=== PATIENT | female | born 1990 | race Hispanic/Latino ===

== ENCOUNTER 2017-02-07 20:24 | Inpatient (IN) | payer MEDICAID, OTHER, SELFPAY ==
[2017-02-07 20:56] VITALS: BMI 36.5
[2017-02-07] MEDS ORDERED: Promethazine HCl 25 MG/ML VIAL IM PRN (21:06)
[2017-02-07] MEDS ORDERED: Ondansetron HCl/PF 4 MG/2 ML Vial IVP PRN (21:06)
[2017-02-07] MEDS ORDERED: LR 500 ML/Oxytocin 10 units 500 ML IV SCH (21:15)
[2017-02-07] MEDS ORDERED: LR / Pitocin 40 units/1000 ml 40 UNITS/1,000 ML BAG IV SCH (21:15)
[2017-02-07] MEDS ORDERED: Lidocaine 1% (PF) 30 ML VIAL SC PRN (21:15)
[2017-02-07 21:29] LABS: Red Blood Cell (RBC) Count 4.46 mill/uL (4.20-5.40); White Blood Cell (WBC) Count 8.9 thou/uL (4.8-10.8)
[2017-02-07] MEDS: Misoprostol 100 MCG TAB VAG SCH (21:34)
[2017-02-07] MEDS: LR 500 ML/Oxytocin 10 units 500 ML IV SCH (21:34)
[2017-02-07] MEDS: Lactated Ringer's 1,000 ML IV SCH (21:34)
[2017-02-07 21:41] LABS: Hemoglobin A1c 5.4 % (4.0-6.0)
[2017-02-07] MEDS ORDERED: Penicillin G Potassium 5 MILL.UNITS in Sodium Chloride 0.9% 100 ML IVPB SCH (21:45)
[2017-02-08] MEDS: Misoprostol 100 MCG TAB VAG SCH ×5 (01:16→13:17)
[2017-02-08] MEDS: Penicillin G 2.5 MILL.units 2.5 MILL.UNITS in Premix Bag 1 BAG IVPB SCH ×4 (05:00→17:52)
[2017-02-08] MEDS: LR 500 ML/Oxytocin 10 units 500 ML IV SCH (05:09)
[2017-02-08] MEDS: Lactated Ringer's 1,000 ML IV SCH ×3 (05:09→15:32)
[2017-02-08] MEDS ORDERED: Fentanyl 4 mcg/Marc 0.1% Cadd 100 ML ONE (08:48)
[2017-02-08] MEDS ORDERED: Eucerin (Mineral Oil/Petrolatum,White) 30 gm Jar TOP PRN ×2 (09:43→21:32)
[2017-02-08] MEDS ORDERED: Acetaminophen 325 MG TAB PO PRN (09:43)
[2017-02-08] MEDS ORDERED: ePHEDrine/0.9% NaCl/PF SYRINGE 50 mg/10 ml SLOW IVP PRN (09:43)
[2017-02-08] MEDS ORDERED: Naloxone HCl 0.4 mg/ml Vial IVP PRN ×4 (09:43→21:32)
[2017-02-08] MEDS ORDERED: Lactated Ringer's 500 ML IV PRN (09:43)
[2017-02-08] MEDS ORDERED: Communication Order-Pharmacy FS SCH ×2 (09:45→21:45)
[2017-02-08] MEDS ORDERED: Fentanyl 4mcg/Marcaine 0.1% Cassette 100 ML EPIDURAL SCH (09:45)
[2017-02-08] MEDS ORDERED: CEFAZOLIN/Water 2 GM/20 ML SYRINGE ONE (21:01)
[2017-02-08] MEDS ORDERED: Bicitra 30 ML UDCUP ONE (21:01)
[2017-02-08] MEDS ORDERED: Bupivacaine 0.25% HCL 30 ML VIAL ONE (21:14)
[2017-02-08] MEDS ORDERED: Lidocaine 2% PF 10 ML AMP (For Epidural Use) ONE (21:14)
[2017-02-08] MEDS ORDERED: Oxytocin 10 UNITS/ML VIAL ONE (21:15)
[2017-02-08] MEDS ORDERED: Ondansetron HCl/PF 4 MG/2 ML Vial ONE (21:15)
[2017-02-08] MEDS ORDERED: CEFAZOLIN/Water 2 GM/20 ML SYRINGE SLOW IVP SCH (21:15)
[2017-02-08] MEDS ORDERED: PHENYLEPHRINE-NS 100 MCG/ML 10 ML SYRINGE ONE (21:15)
[2017-02-08] MEDS ORDERED: Bicitra 30 ML UDCUP PO SCH (21:15)
[2017-02-08] MEDS ORDERED: Dexamethasone 4 mg/ml Vial ONE (21:15)
[2017-02-08] MEDS ORDERED: ePHEDrine/0.9% NaCl/PF SYRINGE 50 mg/10 ml ONE (21:15)
[2017-02-08] MEDS ORDERED: Morphine PF 1 MG/ML SYR ONE (21:15)
[2017-02-08] MEDS ORDERED: Ketorolac Tromethamine 30 MG/ML VIAL ONE (21:15)
[2017-02-08] MEDS ORDERED: Ketorolac Tromethamine 30 MG/ML VIAL IVP SCH (21:30)
[2017-02-08] MEDS ORDERED: Meperidine HCl/PF 25 MG/ML VIAL SLOW IVP PRN (21:30)
[2017-02-08] MEDS ORDERED: Ondansetron HCl/PF 4 MG/2 ML Vial IVP PRN ×2 (21:30→21:32)
[2017-02-08] MEDS ORDERED: Azithromycin 500 MG in Sodium Chloride 0.9% 250 ML 250 ML IVPB ONE (21:30)
[2017-02-08] MEDS ORDERED: HYDROmorphone 2 MG/ML VIAL SLOW IVP PRN (21:30)
[2017-02-08] MEDS ORDERED: Promethazine HCl 25 MG SUPP PR PRN (21:32)
[2017-02-08] MEDS ORDERED: Promethazine HCl 25 MG/ML VIAL IM PRN (21:32)
[2017-02-08] MEDS ORDERED: Naloxone HCl 0.4 mg/ml Vial IV PRN (21:32)
[2017-02-08] MEDS ORDERED: diphenhydrAMINE 50 MG/ML VIAL IVP PRN (21:32)
[2017-02-09] MEDS ORDERED: Lanolin Ointment 7 GM TUBE TOP PRN (00:26)
[2017-02-09] MEDS ORDERED: diphenhydrAMINE 25 MG CAP PO PRN (00:26)
[2017-02-09] MEDS ORDERED: Adacel (T-DAP) 0.5 ML VIAL IM ONE (00:26)
[2017-02-09] MEDS ORDERED: Bisacodyl 10 MG SUPP PR PRN (00:26)
[2017-02-09] MEDS ORDERED: Simethicone Chewable 80 MG TAB PO PRN (00:26)
--- NOTE | 2017-02-09 00:31 | OP ---
DATE OF SURGERY: 02/08/2017 PREOPERATIVE DIAGNOSIS: Term intrauterine in labor with failure to progress. POSTOPERATIVE DIAGNOSES: Term intrauterine in labor with failure to progress status post d elivery. PROCEDURE: Primary low transverse section. SURGEON: Kanika Mccoy MD CARPET JACK: Dr. Mary Pablo. ANESTHESIA: Epidural. COMPLICATIONS: None. PROCEDURE IN DETAIL: After adequate epidural anesthetic, patient was placed in the supine position. A wedge was placed under her right flank. The abdomen was prepped and draped in the usual sterile t echnique. A Pfannenstiel incision was made in the inferior aspect of the abdomen. Subcutaneous tiss ue opened with sharp dissection. Fascia opened with sharp dissection. Peritoneum opened with blunt dissection, noted that the abdomen was filled with a gravid uterus. A large Shorty O retractor was p laced in the abdominal cavity and a low transverse incision was made on the uterus. A viable female was delivered from vertex presentation without difficulty. breathed and cried spontane ously. Cord was clamped and cut and infant was handed to care of the neonatology team. Cord blood w as obtained and the placenta was delivered manually and appeared intact. Ring forceps were used to g rasp the edges of the hysterotomy, which was then closed in continuous fashion using 0 Monocryl. A s econd layer of imbrication was placed and noted good hemostasis. Examination of gutters revealed no clots and no bleeding. The Shorty O retractor was removed and the peritoneum was then closed in cont inuous fashion using 2-0 chromic. The fascia was then closed in continuous fashion using 0 Vicryl. Sponge and instrument counts were correct. Bleeders on the subcutaneous tissue were cauterized after irrigation and subcutaneous tissue was approximated with 2-0 plain. Skin was then closed using stap les. Patient tolerated the procedure well to go to the recovery room in good condition. Noted that the baby is a viable female infant, weight 6 pounds 13 ounces with Apgars 9 at 1 minute and 10 at 5 m inutes, to go to level 1 nursery. Estimated blood loss, 800 mL. No complications.
[2017-02-09] MEDS: Misoprostol 100 MCG TAB VAG SCH (00:40)
[2017-02-09] MEDS: Penicillin G 2.5 MILL.units 2.5 MILL.UNITS in Premix Bag 1 BAG IVPB SCH (00:41)
[2017-02-09] MEDS: Ibuprofen 800 MG TAB PO SCH ×4 (00:42→21:20)
[2017-02-09] MEDS: Lactated Ringer's 1,000 ML IV SCH ×2 (01:20→11:00)
--- NOTE | 2017-02-09 05:43 | ADD-OP ---
ADDENDUM DATE OF SERVICE: 02/08/2017 I was present and scrubbed to assist the uncomplicated primary with Dr. Kanika Mccoy. Mane cowan see her note for full details.
[2017-02-09 05:54] LABS: Hematocrit 28.8 % (36.0-47.0); Mean Platelet Volume 8.8 fL (7.4-10.4); Red Blood Cell (RBC) Count 3.34 mill/uL (4.20-5.40); White Blood Cell (WBC) Count 14.9 thou/uL (4.8-10.8)
[2017-02-09] MEDS: Ketorolac Tromethamine 30 MG/ML VIAL IVP PRN ×2 (05:56→13:38)
[2017-02-09] MEDS: Prenatal Vitamin 1 TAB PO SCH (09:15)
[2017-02-09] MEDS: Docusate (Surfak) 240 MG CAP PO SCH ×2 (09:15→21:20)
[2017-02-09] MEDS: Ferrous Sulfate 325 MG TAB PO SCH ×2 (09:15→21:20)
[2017-02-09] MEDS: HYDROcodone/Acetaminophen 5/325 mg Tablet PO PRN (22:33)
[2017-02-10] MEDS: Ibuprofen 800 MG TAB PO SCH ×3 (06:13→21:12)
[2017-02-10] MEDS: Ferrous Sulfate 325 MG TAB PO SCH ×2 (09:10→23:32)
[2017-02-10] MEDS: Prenatal Vitamin 1 TAB PO SCH (09:10)
[2017-02-10] MEDS: Docusate (Surfak) 240 MG CAP PO SCH ×2 (09:10→19:35)
[2017-02-10] MEDS: Acetaminophen/Codeine 30-300mg Tablet PO PRN (09:10)
[2017-02-11] MEDS: Ibuprofen 800 MG TAB PO SCH ×2 (04:55→13:34)
[2017-02-11] MEDS: Acetaminophen/Codeine 30-300mg Tablet PO PRN (04:56)
[2017-02-11 08:14] VITALS: BP 128/66; TEMP 98.2
--- NOTE | 2017-02-11 09:10 | DIS ---
DATE OF ADMISSION: 02/08/2017 DATE OF DISCHARGE: 02/11/2017 ADMISSION DIAGNOSES: Term intrauterine , arrest of active phase of labor. PROCEDURES PERFORMED: 1. Labor management. 2. Primary low transverse . HOSPITAL COURSE: At the time of presentation, Ms. Magy Diallo is a 26-year-old female at term w ho presented with labor. She developed arrest of labor and had a primary low transverse sec tion. Her postoperative course has been uncomplicated. She has been taking primarily ibuprofen for pain. She is , tolerating p.o. and has normal lochia. Vesta this time in place and a re ordered to be discontinued. PHYSICAL EXAMINATION: VITAL SIGNS: Within normal limits and the patient is afebrile. GENERAL: Nontoxic appearing female, in no acute distress. ABDOMEN: Soft, nontender, nondistended, no rebound, no guarding. GENITOURINARY: Fundus is firm at the umbilicus. Incision has vesta and is clean, dry, and intact. ASSESSMENT AND PLAN: Postoperative day #3, status post section, doing well, stable for disc harge. [place] will be removed. DISCHARGE INSTRUCTIONS: The patient is instructed to contact Dr. Mccoy's office for followup appoin tment. Dr. Mccoy has already sent in prescriptions.
[2017-02-11] MEDS: Ferrous Sulfate 325 MG TAB PO SCH (10:04)
[2017-02-11] MEDS: Docusate (Surfak) 240 MG CAP PO SCH (10:04)
[2017-02-11] MEDS: Prenatal Vitamin 1 TAB PO SCH (10:04)
[2017-02-11] MEDS: HYDROcodone/Acetaminophen 5/325 mg Tablet PO PRN (10:08)
== END 2017-02-11 14:00 | disposition home or self-care (01) | DRG 765 ==
LOC: L&D 20:24 → 3SW 02-09 00:19
PROVIDERS: ADMIT Family Medicine; ATTEND Family Medicine
PROC: 3E0P7VZ Introduction of Hormone into Female Reproductive, Via Natural or Artificial Opening (ICD-10-PCS; 2017-02-07)
PROC: 10D00Z1 Extraction of Products of Conception, Low, Open Approach (ICD-10-PCS; principal; 2017-02-08)
PROC: 10907ZC Drainage of Amniotic Fluid, Therapeutic from Products of Conception, Via Natural or Artificial Opening (ICD-10-PCS; 2017-02-08)
PROC: 10H07YZ Insertion of Other Device into Products of Conception, Via Natural or Artificial Opening (ICD-10-PCS; 2017-02-08)
DX: O24.12 Pre-existing type 2 diabetes mellitus, in childbirth (principal); O41.03X0 Oligohydramnios, third trimester, not applicable or unspecified; K76.0 Fatty (change of) liver, not elsewhere classified; O36.5930 Maternal care for other known or suspected poor fetal growth, third trimester, not applicable or unspecified; O62.1 Secondary uterine inertia; Z37.0 Single live birth; Z3A.38 38 weeks gestation of pregnancy; E11.9 Type 2 diabetes mellitus without complications; O99.62 Diseases of the digestive system complicating childbirth; Z79.84 Long term (current) use of oral hypoglycemic drugs; O99.824 Streptococcus B carrier state complicating childbirth
CPT/HCPCS: 36415; 82947; 83036; 85027; 86780; 86850; 86900; 86901; 87340; 90715; J0456; J0595; J1100; J1885; J2001; J2274; J2405; J2540; J2590; J7050; J7120; S0020